=== PATIENT | female | born 1955 | race Two or more races ===

== ENCOUNTER 2022-08-29 12:48 | Emergency (ER) | payer MEDICARE, MEDICAID ==
[~2022-08-29] VITALS: Ht 167.6 cm; Wt 86.0 kg
[2022-08-29] MEDS ORDERED: KETOROLAC 30MG/ML VIAL IV STA (13:40)
[2022-08-29] MEDS ORDERED: SODIUM CHLORIDE 0.9% 1,000 ML IV ONE (13:45)
[2022-08-29 15:06] VITALS: BP 130/88
[2022-08-29 15:19] LABS: BASOPHILS % 0.5 % (0.0-2.0); EOSINOPHILS % 2.2 % (0.0-5.0); HEMATOCRIT. 30.6 % (36.0-48.0); HEMOGLOBIN. 10.2 g/dL (12.0-16.0); LYMPHOCYTES % 24.3 % (20.0-50.0); MEAN CORPUSCULAR HEMOGLOBIN 26.6 pg (28.0-32.0); MEAN PLATELET VOLUME 6.7 fl (7.4-10.4); PLATELET 224 x1000/uL (130-400); RED BLOOD CELL COUNT 3.83 mill/uL (4.2-5.4); RED CELL DISTRIBUTION WIDTH 21.3 % (11.6-14.6)
[2022-08-29 15:28] LABS: CHLORIDE 103 mEq/L (98-107)
[2022-08-29] MEDS ORDERED: NAPR-679 MT (16:10)
== END 2022-08-29 17:03 | disposition home or self-care (01) ==
LOC: EDSEX 12:48 → EDBD 12:48 → ER 12:48
DX: R53.1 Weakness (principal); I10 Essential (primary) hypertension; E11.9 Type 2 diabetes mellitus without complications
CPT/HCPCS: 36415; 71045; 80053; 83880; 84484; 85025; 93005; 96374; 99285; J1885; J7030